=== PATIENT | male | born 2000 | race African-American/Black ===

== ENCOUNTER 2021-09-25 21:24 | Emergency (ER) | payer OTHER ==
[~2021-09-25] VITALS: Ht 170.2 cm; Wt 63.5 kg
[2021-09-25 22:16] LABS: URINE BILIRUBIN NEGATIVE (Negative); URINE BLOOD NEGATIVE (Negative); URINE CLARITY CLEAR; URINE COLOR YELLOW; URINE GLUCOSE-RANDOM* NEGATIVE (Negative); URINE KETONES 2+ (Negative); URINE LEUKOCYTES-REFLEX NEGATIVE (Negative); URINE NITRITE-REFLEX NEGATIVE (Negative); URINE PROTEIN (DIPSTICK) NEGATIVE (Negative); URINE SPECIFIC GRAVITY >= 1.030 (1.005-1.035)
[2021-09-25 22:30] VITALS: BP 111/69
[2021-09-26] MEDS ORDERED: DOXYCYCLINE 10100 MG PO (19:06)
== END 2021-09-25 22:30 | disposition home or self-care (01) ==
LOC: ER 21:24
PROVIDERS: Nurse Practitioner
DX: R21 Rash and other nonspecific skin eruption (principal); Z20.2 Contact with and (suspected) exposure to infections with a predominantly sexual mode of transmission